=== PATIENT | female | born 1960 | race Caucasian/White ===

== ENCOUNTER 2017-09-02 21:38 | Emergency (ER) | payer OTHER ==
[2017-09-02 21:53] VITALS: TEMP 98.2
[2017-09-02] MEDS ORDERED: NS 1,000 ML IV ONE ×2 (21:53→22:39)
[2017-09-02] MEDS ORDERED: LORazepam 2 MG/ML INJ IVP ONE (22:15)
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
[2017-09-02] MEDS ORDERED: ONDANSETRON 4 MG/2 ML VIAL ONE (22:38)
[2017-09-02] MEDS ORDERED: ONDANSETRON 4 MG/2 ML VIAL IVP ONE (22:40)
[2017-09-02 22:51] LABS: % IMMATURE GRANULYOCYTES 1.4 % (0.0-1.1); ADD DIFF? NO; ADD MORPH? NO; ADD SCAN? NO; ATYPICAL LYMPHOCYTE FLAG 10 (0-99); FRAGMENT RBC FLAG 0 (0-99); HEMATOCRIT 41.8 % (38.0-47.0); HEMOGLOBIN 14.6 g/dL (12.6-16.3); LEFT SHIFT FLG 10 (0-99); LIPEMIA HEMOLYSIS FLAG 90 (0-99); MEAN CELL HEMOGLOBIN 33.1 pg (27.9-34.1); MEAN CELL HEMOGLOBIN CONCENTR. 34.9 g/dL (32.4-36.7); MEAN CELL VOLUME 94.8 fL (81.5-99.8); MEAN PLATELET VOLUME 10.1 fL (8.7-11.7); PLATELET CLUMPS FLAG 20 (0-99); PLATELET COUNT 140 10^3/uL (150-400); RED BLOOD CELL COUNT 4.41 10^6/uL (4.18-5.33); RED CELL DISTRIBUTION WIDTH 12.9 % (11.5-15.2)
[2017-09-02 22:58] LABS: ANION GAP 22 mEq/L (8-16); CALCIUM 8.6 mg/dL (8.5-10.4); CARBON DIOXIDE 11 mEq/l (22-31); CHLORIDE 98 mEq/L (97-110); CREATININE 0.6 mg/dL (0.6-1.0); GLOMERULAR FILTRATION RATE > 60; GLUCOSE 100 mg/dL (70-100); POTASSIUM 3.3 mEq/L (3.5-5.2); SODIUM 131 mEq/L (134-144)
[2017-09-03 03:41] VITALS: BP 140/95; PULSE 112; RESP 18; O2SAT 94
== END 2017-09-03 03:36 | disposition home or self-care (01) ==
DX: E86.0 Dehydration (principal); F17.200 Nicotine dependence, unspecified, uncomplicated
CPT/HCPCS: 70450; 96361; 96374; 96375; 99285; J2060; J2405